=== PATIENT | female | born 1960 | race Caucasian/White ===

== ENCOUNTER 2022-11-18 10:53 | Emergency (ER) | payer OTHER ==
[2022-11-18 11:02] VITALS: BP 140/76; RESP 18; BMI 32.3
[2022-11-18 11:42] VITALS: PULSE 80; TEMP 98.5
[2022-11-18] MEDS ORDERED: ACETAMINOPHEN 325 MG TABLET (FP) PO ONE (11:50)
[2022-11-18] MEDS ORDERED: ACETAMINOPHEN 325 MG TABLET (FP) ONE (11:57)
== END 2022-11-18 12:50 | disposition home or self-care (01) ==
LOC: FER 10:53
DX: M25.561 Pain in right knee (principal)
CPT/HCPCS: 73560-TC-RT-FY; 99283-25

== ENCOUNTER 2024-01-14 15:11 | Emergency (ER) | payer OTHER ==
[2024-01-14 15:44] VITALS: BP 136/83; PULSE 72; RESP 16; TEMP 98.6; BMI 28.0
[2024-01-14] MEDS ORDERED: IBUPROFEN 400 MG TABLET (FP) PO ONE (15:55)
[2024-01-14] MEDS: IBUPROFEN 400 MG TABLET (FP) PO ONE (15:56)
== END 2024-01-14 17:30 | disposition home or self-care (01) ==
LOC: FER 15:11
DX: S52.502A Unspecified fracture of the lower end of left radius, initial encounter for closed fracture (principal); V18.0XXA Pedal cycle driver injured in noncollision transport accident in nontraffic accident, initial encounter
CPT/HCPCS: 73070-TC-LT-FY; 73090-TC-LT-FY; 73110-TC-LT-FY; 73130-TC-LT-FY; 99283-25

== ENCOUNTER 2024-01-26 07:28 | Day surgery (SDC) | payer OTHER ==
[2024-01-25 11:26] VITALS: BMI 28.0
[2024-01-26] MEDS ORDERED: MIDAZOLAM HCL 2 MG/2 ML SINGLE DOSE VIAL ONE ×3 (08:23→12:14)
[2024-01-26] MEDS ORDERED: PROPOFOL 20 ML ONE ×2 (08:23→13:08)
[2024-01-26] MEDS ORDERED: DEXAMETHASONE SOD PHOSPHATE 10 MG/1 ML VIAL ONE (08:34)
[2024-01-26] MEDS ORDERED: ROPIVACAINE HCL/PF 100 MG/20 ML VIAL ONE (08:34)
[2024-01-26] MEDS ORDERED: oxyCODONE HCL 5 MG TABLET PO PRN (14:08)
[2024-01-26] MEDS ORDERED: ONDANSETRON 4 MG/2 ML VIAL IVPUSH PRN (14:08)
[2024-01-26] MEDS ORDERED: LACTATED RINGERS SOLUTION 1,000 ML IV SCH (14:15)
[2024-01-26 15:14] VITALS: TEMP 97.6
[2024-01-26 15:54] VITALS: BP 128/72; PULSE 62; RESP 18
== END 2024-01-26 16:10 | disposition home or self-care (01) ==
LOC: FASU 07:28
PROVIDERS: ATTEND Orthopaedic Surgery Sports Medicine
PROC: 0PSJ04Z Reposition Left Radius with Internal Fixation Device, Open Approach (ICD-10-PCS; principal; 2024-01-26 12:23)
DX: S52.562A Barton's fracture of left radius, initial encounter for closed fracture (principal); X58.XXXA Exposure to other specified factors, initial encounter; Y93.9 Activity, unspecified; Y92.9 Unspecified place or not applicable
CPT/HCPCS: 73110-TC-LT-FY; 94760; C1713; J1100

== ENCOUNTER 2025-02-18 06:26 | Day surgery (SDC) | payer OTHER ==
[2025-02-14 08:51] VITALS: BMI 31.4
[2025-02-18] MEDS ORDERED: INDOCYANINE GREEN 25 MG/10 ML VIAL IVPUSH ONE (07:32)
[2025-02-18] MEDS ORDERED: BUPIVACAINE HCL/PF 0.25% (2.5MG/ML) 10 ML VIAL ONE (07:32)
[2025-02-18] MEDS ORDERED: cefOXitin SODIUM 2 GM VIAL (RESTRICTED TO ID) IVPB ONE (07:32)
[2025-02-18] MEDS ORDERED: HEPARIN NA (PORCINE) 5,000 UNITS/ML 1ML VIAL ONE (07:32)
[2025-02-18] MEDS ORDERED: MIDAZOLAM HCL 2 MG/2 ML SINGLE DOSE VIAL ONE (07:52)
[2025-02-18] MEDS ORDERED: SEVOFLURANE 250 ML BTL ONE (07:53)
[2025-02-18] MEDS ORDERED: PROPOFOL 40 ML ONE (07:54)
[2025-02-18] MEDS ORDERED: ONDANSETRON 4 MG/2 ML VIAL ONE ×2 (08:01→09:48)
[2025-02-18] MEDS ORDERED: SUGAMMADEX SODIUM 200 MG/2 ML VIAL ONE (08:01)
[2025-02-18] MEDS ORDERED: LIDOCAINE HCL 2% 100 MG/5 ML DISP.SYRIN ONE (08:01)
[2025-02-18] MEDS ORDERED: DEXAMETHASONE SOD PHOSPHATE 4 MG/1 ML VIAL ONE (08:01)
[2025-02-18] MEDS ORDERED: ROCURONIUM BROMIDE 50 MG/5 ML SYRINGE ONE (08:01)
[2025-02-18] MEDS: cefOXitin SODIUM 1 GM VIAL (RESTRICTED TO ID) IVPB ONE ×2 (08:16)
[2025-02-18] MEDS ORDERED: ACETAMINOPHEN INJECTION 100 ML ONE (08:18)
[2025-02-18] MEDS: BUPIVACAINE HCL/PF 0.25% (2.5MG/ML) 10 ML VIAL IJ ONE ×2 (08:22)
[2025-02-18] MEDS ORDERED: KETOROLAC TROMETHAMINE 30 MG/1 ML VIAL ONE (09:07)
[2025-02-18] MEDS ORDERED: LACTATED RINGERS SOLUTION 1,000 ML IV SCH (09:45)
[2025-02-18] MEDS: ONDANSETRON 4 MG/2 ML VIAL IVPUSH PRN (09:53)
[2025-02-18 15:43] VITALS: BP 111/74; PULSE 76; RESP 16; TEMP 97
== END 2025-02-18 16:10 | disposition home or self-care (01) ==
LOC: JASU-SURG 06:26
PROVIDERS: ATTEND Surgery
PROC: 0FT44ZZ Resection of Gallbladder, Percutaneous Endoscopic Approach (ICD-10-PCS; principal; 2025-02-18 08:00)
DX: K80.20 Calculus of gallbladder without cholecystitis without obstruction (principal)
CPT/HCPCS: 86850; 86900; 86901; 88307-TC; 94760